=== PATIENT | male | born 1975 | race Caucasian/White ===

== ENCOUNTER 2020-02-23 14:16 | Emergency (ER) | payer SELFPAY ==
[~2020-02-23] VITALS: Ht 182.9 cm; Wt 84.0 kg
[2020-02-23] MEDS ORDERED: [UNRECOGNIZED DRUG - OTHER] (14:32)
[2020-02-23 15:20] VITALS: BP 122/78
== END 2020-02-23 15:30 | disposition home or self-care (01) ==
LOC: ER 14:32
DX: S13.4XXA Sprain of ligaments of cervical spine, initial encounter (principal); B20 Human immunodeficiency virus [HIV] disease; V43.62XA Car passenger injured in collision with other type car in traffic accident, initial encounter; Y93.9 Activity, unspecified; Y92.410 Unspecified street and highway as the place of occurrence of the external cause
CPT/HCPCS: 93005; 99283